=== PATIENT | female | born 1930 | race Caucasian/White ===

== ENCOUNTER 2019-12-02 18:34 | Observation (INO) | payer OTHER ==
[~2019-12-02] VITALS: Ht 167.6 cm; Wt 74.8 kg
--- NOTE | 2019-12-02 18:40 | NUR ---
PT BIBA ALS TO ER BED 5
[2019-12-02 18:57] VITALS: BP 114/57
--- NOTE | 2019-12-02 19:30 | NUR ---
89 Y/O [place] [facility] [place]. TEMP AT BEDSIDE IS 99.1. LUNG SOUNDS CLEAR ON UPPPER BILAT LOBES, AND CRACKLES ON RIGHT LOWER LOBE. VSS. NO DISTRESS NOTED. SPO2 97% 2L NC. A&OX4. NKA. PMH: DEMENITA, HTN.
[2019-12-02] MEDS ORDERED: NACL 0.9% 1,500 ML IV SCH (19:35)
--- NOTE | 2019-12-02 19:52 | NUR ---
EKG PERFORMED AT BEDSIDE
--- NOTE | 2019-12-02 20:12 | NUR ---
XR AT BEDSIDE.
[2019-12-02 20:23] LABS: HEMATOCRIT 32.7 % (36-48); HEMOGLOBIN 11.3 g/dL (12.0-16.0); MEAN CORPUSCULAR HEMOGLOBIN 30 pg (27-31); MEAN CORPUSCULAR HGB CONC 34 g/dL (33-37); MEAN CORPUSCULAR VOLUME 87.9 fL (80-94); PLATELET COUNT (AUTO) 190 K/uL (140-450); RED BLOOD CELL COUNT(AUTO) 3.72 MIL/uL (4.20-5.40); RED CELL DISTRIBUTION WIDTH 12.6 % (11.6-13.7); WHITE BLOOD COUNT (AUTO) 13.5 K/uL (4.8-10.8)
[2019-12-02 20:47] LABS: PROTHROMBIN TIME 10.5 secs (10.8-13.4)
--- NOTE | 2019-12-02 20:54 | NUR ---
FLU SWAB COLLECTED.
[2019-12-02 21:05] LABS: ALBUMIN 2.6 g/dL (3.4-5.0); ANION GAP 6.6 (8-16); ASPARTATE AMINOTRANSFERASE 35 U/L (15-37); CARBON DIOXIDE 30.9 mmol/L (21-32); CHLORIDE 101 mmol/L (98-107); CREATININE 1.1 mg/dL (0.6-1.3); GLUCOSE 132 mg/dL (74-106); POTASSIUM 4.5 mmol/L (3.5-5.1); SODIUM SERUM 134 mmol/L (136-145); TOTAL BILIRUBIN 0.6 mg/dL (0.0-1.0); UREA NITROGEN, BLOOD 33 mg/dL (7-18)
[2019-12-02 21:10] LABS: LYMPHOCYTES % (MANUAL) 3 % (20-46); MONOCYTES % (MANUAL) 3 % (5-12)
--- NOTE | 2019-12-02 21:13 | NUR ---
URINE COLLECTED BY STRAIGHT CATH.
[2019-12-02] MEDS ORDERED: cefTRIAXone 1,000 MG VIAL ONE (21:15)
[2019-12-02] MEDS ORDERED: DOCU-299 PO (21:40)
[2019-12-02 21:53] LABS: APPEARANCE,URINE CLOUDY (CLEAR); BILIRUBIN,URINE NEGATIVE (NEGATIVE); BLOOD, URINE TRACE-I (NEGATIVE); COLOR,URINE YELLOW (YELLOW); LEUKOCYTE ESTERASE ,URINE 3+ (NEGATIVE); NITRITE, URINE NEGATIVE (NEGATIVE); UGLUCOSE NEGATIVE (NEGATIVE)
[2019-12-02] MEDS ORDERED: ONDA4TAB PO (21:53)
[2019-12-02] MEDS ORDERED: MAGN400S60 PO (21:53)
[2019-12-02] MEDS ORDERED: ASPI-1822 PO (21:53)
[2019-12-02 21:58] LABS: WBC,URINE 80-100 /HPF (0-5)
--- NOTE | 2019-12-02 23:00 | NUR ---
Patient will be admitted to care of DR. ESCAMILLA. Admited to TELE. Will go to room 110A. Belongings list completed. Report to HAIDER MORALES.
[2019-12-02 23:10] VITALS: BP 80/50
--- NOTE | 2019-12-02 23:10 | NUR ---
RECIEVED PT AAOX4 , W/ O2 AT 2LPM/ NC - O2 SAT WNL - ON SAP INTEGRATION ARCHITECT ,IV SITE INTACT AND PATENT - ON DIAPER - INCONTINENT - LOW CEM SCALE - SKIN INTACT - TRANSFER TO BED BY 2 PEOPLE MANUAL LIFT - UNSTEADY GAIT - FALL RISK - PUT ON SAFETY / FALL PRECAUTION PROTOCOL - BED ALARM ON . ADMISSION ASSESSMENT DONE , MRSA SPECIMEN SENT TO LAB .POC DISCUSSED AND VERBALIZE UNDERSTANDING , WILL CONT. TO MONITOR. CALL LIGHT WITHIN REACH.
[2019-12-02] MEDS ORDERED: MAG SULF 2000 MG/WATER PREMIX 50 ML IV PRN (23:40)
[2019-12-02] MEDS ORDERED: ONDANSETRON 4 MG/2 ML VIAL IVP PRN (23:40)
[2019-12-02] MEDS: cefTRIAXone 2,000 MG in DEXTROSE 5% 100 ML IV SCH (23:40)
[2019-12-02] MEDS ORDERED: ACETAMINOPHEN 325 MG TAB PO PRN (23:40)
[2019-12-02] MEDS ORDERED: ZOLPIDEM 5 MG TAB PO PRN (23:40)
[2019-12-02] MEDS ORDERED: POTASSIUM CHLORIDE 10 MEQ TABER PO PRN (23:40)
--- NOTE | 2019-12-03 00:08 | NUR ---
PAGED DR ESCAMILLA - DOCTOR ENVIRONMENTAL ENGINEERING INTERN FOR FURTHER ORDERS - WAITING FOR RESPONSE
[2019-12-03] MEDS ORDERED: NACL 0.9% 1,000 ML IV ONE (00:30)
--- NOTE | 2019-12-03 00:30 | NUR ---
DR FRANCINE GUEVARA - INFORM HIM LATEST BP OF PT IS 80/60 - MADE T.O AND CARRIED OUT .
--- NOTE | 2019-12-03 00:44 | NUR ---
NSS 1 L GIVEN IV BOLUS ORDERED - WILL CONT TO MONITOR - DENIES ANY PAIN - ON CORPORATE TRAINER.
--- NOTE | 2019-12-03 01:44 | NUR ---
BP RE CHECK 110/60 - WILL CONT. TO MONITOR.
--- NOTE | 2019-12-03 02:00 | NUR ---
PAGED DR. ESCAMILLA - TO CLARIFY THE ORDER KALLIE ONTIVEROS - INFORMED CHARGE NURSE ABOUT IT . WAITING FOR RESPONSE
[2019-12-03] MEDS: NACL 0.9% 1,000 ML IV SCH ×3 (02:13→20:46)
--- NOTE | 2019-12-03 02:45 | NUR ---
RE PAGED DR ESCAMILLA ABOUT LYLYHIN ORDER - INFORMED CHARGE NURSE ABOUT IT . WAITING FOR RESPONSE.
[2019-12-03 04:00] VITALS: BP 120/72
[2019-12-03 06:08] LABS: BASOPHILS % (AUTO) 0.3 % (0.0-2.0); EOSINOPHILS % (AUTO) 0.1 % (0.0-4.0); HEMATOCRIT 30.2 % (36-48); HEMOGLOBIN 10.2 g/dL (12.0-16.0); LYMPHOCYTES # (AUTO) 0.9 K/uL (2.5-16.5); LYMPHOCYTES % (AUTO) 7.3 % (20.5-51.1); MEAN CORPUSCULAR HEMOGLOBIN 30 pg (27-31); MEAN CORPUSCULAR HGB CONC 34 g/dL (33-37); MEAN CORPUSCULAR VOLUME 89.7 fL (80-94); MONOCYTES % (AUTO) 8.7 % (1.7-9.3); NEUTROPHILS # (AUTO) 9.8 K/uL (1.8-7.7); NEUTROPHILS % (AUTO) 83.6 % (42.2-75.2); PLATELET COUNT (AUTO) 170 K/uL (140-450); RED BLOOD CELL COUNT(AUTO) 3.37 MIL/uL (4.20-5.40); RED CELL DISTRIBUTION WIDTH 12.6 % (11.6-13.7); WHITE BLOOD COUNT (AUTO) 11.7 K/uL (4.8-10.8)
--- NOTE | 2019-12-03 07:10 | NUR ---
RECEIVED PT FROM LOGGING ENGINEER NURSE CARMEN. PT IS ALERT AND RESPONSIVE. ABLE TO MAKE NEEDS KNOWN VERBALLY. NO C/O PAIN AT THIS TIME, NO SOB, AFEBRILE. CALL BUTTON WITHIN REACH. WILL CONT TO MONITOR.
[2019-12-03 07:17] LABS: ALBUMIN 2.2 g/dL (3.4-5.0); ANION GAP 7.4 (8-16); ASPARTATE AMINOTRANSFERASE 29 U/L (15-37); CARBON DIOXIDE 29.5 mmol/L (21-32); CHLORIDE 107 mmol/L (98-107); GLUCOSE 100 mg/dL (74-106); POTASSIUM 4.9 mmol/L (3.5-5.1); SODIUM SERUM 139 mmol/L (136-145); TOTAL BILIRUBIN 0.3 mg/dL (0.0-1.0); UREA NITROGEN, BLOOD 24 mg/dL (7-18)
[2019-12-03 08:00] VITALS: BP 131/60
[2019-12-03] MEDS: MAGNESIUM HYDROXIDE 2400 MG/30 ML UDC PO SCH (09:00)
[2019-12-03] MEDS: DOCUSATE SODIUM 100 MG GELCAP PO SCH (09:46)
[2019-12-03] MEDS: ASPIRIN 81 MG TAB.CHEW PO SCH (09:46)
--- NOTE | 2019-12-03 09:47 | NUR ---
PT'S SCHEDULED AM MEDICATIONS WERE GIVEN, PT REFUSED TO TAKE THE MILK OF MAGNESIA, TOLERATED THE MEDICINES, WILL MONITOR PT.
--- NOTE | 2019-12-03 11:06 | NUR ---
DC PLANNING 89 YRS OLD FEMALE PT WAS ADMITTED FROM [facility] [place] WITH A DX OF UTI UA 4+, TROP 0.898,2ND 0.533 PT HAS A HX OF HTN, AND EARLY DEMENTIA . STARTED ROCEPHIN IV , URINE AND BLOOD CULTURE PENDING CXR (-) CONSIDER CARDIO CONSULT. DC PLAN TO GO BACK TO [facility] [place] WHEN STABLE CM TO FOLLOW Addendum: 12/03/19 at 5548 by Kitty Morgan CM DC PLANNING RECEIVED A CALL FROM [facility] [phone] SPOKE WITH GERMÁN TELLO , STATED THEY ACCEPTED PT INSURANCE IS APPROVED AND NEEDS THE FORM TO BE FILLED OUT BY DR WEEKS , GERMÁN WILL FAX THE FORM CM TO FOLLOW. Addendum: 12/04/19 at 9446 by Kitty Morgan CM DC PLANNING: ADMITTING PAPER WORK FOR [employer] SIGNED BY DR WEEKS AND FAXED TO [phone]. PT WILL BE PICKED BACK BY HER SON AND THE ORIGINAL FORM WILL BE SEND WITH THE FAMILY .
--- NOTE | 2019-12-03 11:45 | NUR ---
PT'S ON CALLED AND SAID TO LET DR. WEEKS KNOW THAT THEY DONT WANT THE PT TO RETURN BACK TO [facility] [place] AND THEY WILL BRING THE PT HOME ONCE DISCHARGE BY MD. Addendum: 12/03/19 at 1207 by Michelle Lozada RN PT'S SON, JAMESON RIVERO, CALLED ) AND SAID TO LET DR. WEEKS KNOW THAT THEY DONT WANT THE PT TO RETURN BACK TO [facility] [place] AND THEY WILL BRING THE PT HOME ONCE DISCHARGE BY .
[2019-12-03 12:00] VITALS: BP 122/63
--- NOTE | 2019-12-03 12:00 | NUR ---
INFORMED DR. WEEKS THAT PT'S SON CALLED AND SAID THAT HE DOES NOT WANT THE PT TO BE DISCHARGE BACK TO [facility], MD ACKNOWLEDGED.
--- NOTE | 2019-12-03 13:39 | NUR ---
PT'S IVF RATE WAS DECREASED TO 50ML/HR NOW.
[2019-12-03 16:00] VITALS: BP 114/67
--- NOTE | 2019-12-03 19:20 | NUR ---
ENDORSED PT TO SPINNER FIXER NURSE FOR CONTINUITY OF CARE.
--- NOTE | 2019-12-03 19:24 | NUR ---
RECEIVED BEDSIDE REPORT FROM DAY RN. PT IS AAOX2-3. PT'S RESPIRATIONS ARE EQUAL AND UNLABORED ON 2L O2 VIA NC. LUNG SOUNDS ARE CLEAR. SKIN IS INTACT. PT ON BEDREST. ABLE TO MOVE ALL EXTREMITIES. IV ON RAC 20G IVF PER ORDERS. PT C/C FEVER AND L HIP PAIN. DENIES PAIN AT THIS TIME AND HAS BEEN AFEBRILE. DX:UTI. PT RECEIVING ROCEPHIN DAILY. PT IS OBSERVATION. POC DISCUSSED WITH PT. UNABLE TO VERBALIZED UNDERSTANDING, REINFORCEMENT NEEDED. SAFETY MEASURES ARE IN PLACE. PT ON FALL PRECAUTION. CALL LIGHT IS WITHIN REACH. WILL CONTINUE TO MONITOR.
[2019-12-03 20:00] VITALS: BP 133/76
--- NOTE | 2019-12-03 20:45 | NUR ---
PATIENT IS LAYING COMFORTABLY IN BED TALKING WITH SON BILL ON PHONE. ALL SAFETY MEASURES ARE IN PLACE. WILL CONTINUE TO MONITOR.
--- NOTE | 2019-12-03 22:15 | NUR ---
PATIENT IS RESTING COMFORTABLY IN BED WATCHING TELEVISION. NO S/S OF DISTRESS NOTED. SAFETY MEASURES ARE IN PLACE. WILL CONTINUE TO MONITOR.
[2019-12-03] MEDS: cefTRIAXone 2,000 MG in DEXTROSE 5% 100 ML IV SCH (23:11)
[2019-12-04] VITALS: BP 136/79
--- NOTE | 2019-12-04 00:30 | NUR ---
VITAL SIGNS ARE WITHIN NORMAL LIMITS. ALL SAFETY MEASURES ARE IN PLACE. CALL LIGHT IS WITHIN REACH.
--- NOTE | 2019-12-04 01:00 | NUR ---
POWER WENT OFF FOR A SECOND AND THE BACK-UP GENERATOR CAME ON. PT IS IN BED. NO S/S OF DISTRESS. PT IS AAOX2. STATES SHE WANTS TO GO WITH [facility] HER GRANDSON AND ATTEMPTING TO GET OUT OF BED. ORIENTED PT TO ROOM AND STAFF. BED ALARM ON.
--- NOTE | 2019-12-04 02:06 | NUR ---
PATIENT STILL VERY CONFUSED WANTING TO GO OUTSIDE. ORIENTED PT TO ROOM AND STAFF. BED ALARM ON AND BED ON LOWEST POSITION. WILL CONTINUE TO MONITOR.
[2019-12-04 04:00] VITALS: BP 134/60
--- NOTE | 2019-12-04 04:00 | NUR ---
VITAL SIGNS ARE WITHIN ROBY LIMITS. SAFETY MEASURES ARE IN PLACE. CALL LIGHT IS WITHIN REACH.
--- NOTE | 2019-12-04 07:10 | NUR ---
PT. RECEIVED FROM WHEEL FITTER NURSE. PT. IS ASLEEP AND IN BED. IV ON THE RIGHT FOREARM 24G WITH NS RUNNING AT 50ML/HR. NO SIGNS OF DISTRESS AND IS AFEBRILE. SAFETY MEASURES IN PLACE. FALL PRECAUTIONS INITIATED. CALL LIGHT WITHIN REACH. WILL CONTINUE TO MONITOR.
[2019-12-04 07:11] LABS: BASOPHILS # (AUTO) 0.1 K/uL (0.00-0.22); BASOPHILS % (AUTO) 0.8 % (0.0-2.0); EOSINOPHILS % (AUTO) 0.2 % (0.0-4.0); HEMATOCRIT 34.1 % (36-48); HEMOGLOBIN 11.3 g/dL (12.0-16.0); LYMPHOCYTES # (AUTO) 0.9 K/uL (2.5-16.5); LYMPHOCYTES % (AUTO) 10.7 % (20.5-51.1); MEAN CORPUSCULAR HEMOGLOBIN 30 pg (27-31); MEAN CORPUSCULAR HGB CONC 33 g/dL (33-37); MEAN CORPUSCULAR VOLUME 91.4 fL (80-94); MONOCYTES # (AUTO) 0.7 K/uL (0.8-1.0); MONOCYTES % (AUTO) 8.5 % (1.7-9.3); NEUTROPHILS # (AUTO) 6.6 K/uL (1.8-7.7); NEUTROPHILS % (AUTO) 79.8 % (42.2-75.2); PLATELET COUNT (AUTO) 198 K/uL (140-450); RED BLOOD CELL COUNT(AUTO) 3.73 MIL/uL (4.20-5.40); RED CELL DISTRIBUTION WIDTH 12.9 % (11.6-13.7); WHITE BLOOD COUNT (AUTO) 8.3 K/uL (4.8-10.8)
--- NOTE | 2019-12-04 07:21 | NUR ---
GAVE BEDSIDE REPORT TO DAY RN. PT ENDORSED IN STABLE CONDITION.
[2019-12-04 07:23] LABS: ANION GAP 10.5 (8-16); CARBON DIOXIDE 27.6 mmol/L (21-32); CHLORIDE 102 mmol/L (98-107); CREATININE 0.9 mg/dL (0.6-1.3); GLUCOSE 92 mg/dL (74-106); POTASSIUM 4.1 mmol/L (3.5-5.1); SODIUM SERUM 136 mmol/L (136-145); UREA NITROGEN, BLOOD 12 mg/dL (7-18)
[2019-12-04 07:36] LABS: THYROID STIMULATING HORMONE 2.85 uIU/mL (0.34-3.74)
[2019-12-04 08:00] VITALS: BP 111/62
[2019-12-04] MEDS: MAGNESIUM HYDROXIDE 2400 MG/30 ML UDC PO SCH (08:16)
[2019-12-04] MEDS: ASPIRIN 81 MG TAB.CHEW PO SCH (08:21)
[2019-12-04] MEDS: DOCUSATE SODIUM 100 MG GELCAP PO SCH (08:21)
--- NOTE | 2019-12-04 08:27 | NUR ---
MORNING MEDICATIONS GIVEN. NO SIGNS OF DISTRESS. WILL CONTINUE TO MONITOR.
--- NOTE | 2019-12-04 08:30 | NUR ---
PT. REMOVED IV FROM RIGHT FOREARM. PT. IS CONFUSED, NO SIGNS OF DISTRESS OR PAIN. WILL CONTINUE TO MONITOR.
--- NOTE | 2019-12-04 08:45 | NUR ---
ATTEMPTED TO REINSERT AN IV SITE TO PT. PT. GETS AGITATED AND VERBALIZES REFUSAL OF ANOTHER IV INSERTION. IV SITE NOT INSERTED. WILL INFORM .
--- NOTE | 2019-12-04 09:10 | NUR ---
PT EVALUATION WAS BEING DONE TO PT NOW, PT IS AMBULATING FROM BED TO BATHROOM THEN BACK TO BED WITH THE ASSISTANCE OF PHYSICAL THERAPY.
[2019-12-04 12:00] VITALS: BP 145/73
[2019-12-04] MEDS ORDERED: CEPH-1019 PO (12:03)
--- NOTE | 2019-12-04 12:15 | NUR ---
PT IS PICKING ON HER NOSE AND HAD NOSE BLEED, PT'S GOWN WAS CHANGED AND ASSISTED WITH LUNCH BUT PT REFUSED TO EAT AND EVEN DRINK AND VERBALIZED " LEAVE ME ALONE", AND PT SLEPT.
--- NOTE | 2019-12-04 12:40 | NUR ---
CALLED PT'S SON, RICHAR, ABOUT DISCHARGE ORDERS. VERBALIZES THAT IT WILL TAKE THEM ABOUT 4 HOURS TO GET TO THE HOSPITAL.
[2019-12-04 16:00] VITALS: BP 143/71
[2019-12-04] MEDS ORDERED: CEPH250C16 PO (16:41)
--- NOTE | 2019-12-04 18:35 | NUR ---
DISCHARGED PT WITH FAMILY, DISCHARGED TEACHINGS AND INSTRUCTION REGARDING PRESCRIPTION WAS GIVEN TO PT AND FAMILY AND PT VERBALIZED UNDERSTANDING, BELONGINGS SENT TO PT,ARM BAND REMOVED AND PT IS STABLE AT THIS TIME.
== END 2019-12-04 18:35 | disposition home or self-care (01) ==
LOC: MED 18:34 → MTU 22:30
PROVIDERS: ADMIT Internal Medicine; ATTEND Internal Medicine
DX: A41.9 Sepsis, unspecified organism (principal); N39.0 Urinary tract infection, site not specified; F03.90 Unspecified dementia, unspecified severity, without behavioral disturbance, psychotic disturbance, mood disturbance, and anxiety; I10 Essential (primary) hypertension; R79.89 Other specified abnormal findings of blood chemistry; Z79.899 Other long term (current) drug therapy
CPT/HCPCS: 36415; 71045; 80048; 80053; 81001; 82550; 82553; 83605; 83880; 84443; 84484; 85025; 85610; 85730; 87040; 87081; 87086; 87804; 93005; 96365; 97112; 97116; 97161; 99291; G0378; J0696; J7030; J7060; 87186; 96366